=== PATIENT | female | born 1935 | race Caucasian/White ===

== ENCOUNTER 2021-10-13 23:52 | Emergency (ER) | payer OTHER, BC ==
--- OUTSIDE RECORDS SUMMARY | 2021-10-13 23:55 | XMS REPORT | Continuity of Care Document ---
:1935 Author Organization [facility] t Address [address] [place] [address] Care Team Providers Name Role Phone [phone] Primary Care Physician Unavailable Rama WOOYD Attending Clinician ARMA Attending Clinician Unavailable JULIANO Attending Clinician Unavailable REGGIE Attending Clinician Unavailable MD VILMA PAREDES Attending Clinician Unavailable MICHELE Attending Clinician Unavailable Ho WOODY Attending Clinician GUSTAVO Attending Clinician Unavailable MD VILMA PAREDES Admitting Clinician Unavailable Payers Payer Name Policy Type Policy Effective Date Expiration Date Sour ce Number MEDICAREMEDICARE PART [id number] 2002 MD Antione Child AND 00:00:00 [id number] [id number] [phone] [address] [id number] BLUE CROSS BLUE [id number] 2015 MD Bartlett on [place] PPO 00:00:00 [id number] [id number] Problems Condition Condition Condition Status Onset Resolution Last Treating Co mments Source Name Details Category Date Date Treatment Clinician Date 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 2-16 An derso in in 00:00: n remission remission 00 Anemia Anemia Disease Active 2015-08 2-12 Anderso 00:00: n 00 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 a a 2-12 Anderso 00:00: n 00 Serum Serum Disease Active 2015-08 creatinine creatinine 0-31 An derso raised raised 00:00: n 00 Malignant Malignant Disease Active 2015-08 neoplasm neoplasm 0-24 Dhruv o of of 00:00: n overlappin overlappin 00 g sites of g sites of bladder bladder Dyspepsia Dyspepsia Disease Active 2015-08 0-24 Anderso 00:00: n 00 Cramp in Cramp in Disease Active 2015-08 lower limb lower limb 0-17 An derso 00:00: n 00 Nausea Nausea Disease Active 2015-08 0-17 Anderso 00:00: n 00 Thrombocyt Thrombocyt Disease Active 2015-08 M D openia openia 0-17 Anderso 00:00: n 00 Neutropeni Neutropeni Disease Active 2015-08 M D a a 0-17 Anderso 00:00: n 00 Bladder Bladder Disease Active 2015-08 cancer cancer 0-03 Anderso 00:00: n 00 Menopause Menopause Disease Active MD Pamela mcarthur Hyperlipid Hyperlipid Disease Active M D emia emia Andtevin n Anxiety Anxiety Disease Active MD Pamela mcarthur Genital Genital Disease Active herpes herpes Andtevin simplex simplex n Genital Genital Disease Active warts warts Andtevin n Allergies, Adverse Reactions, Alerts This patient has no known allergies or adverse reactions. Family History Family Member Diagnosis Comments Start Date Stop Date Source Natural daughter -Breast cancer MD Mateusz august Natural mother -Breast cancer Social History Social Habit Start Date Stop Date Quantity Comments Source History of tobacco Current smoker MD Talbot use Exposure to Not sure MD Talbot SARS-CoV-2 (event) Alcohol intake 2020-10-08 2020-10-08 Current drinker of MD Talbot 00:00:00 00:00:00 alcohol (finding) Cigarettes smoked 2016-05-28 2016-05-28 MD Jamel riley current (pack per 00:00:00 00:00:00 day) - Reported Cigarette 2016-05-28 2016-05-28 MD Talbot pack-years 00:00:00 00:00:00 Tobacco use and 2016-05-28 2016-05-28 Smokeless tobacco MD Talbot exposure 00:00:00 00:00:00 non-user Sex [birth year] At [birth year] MD Bartlett on 00:00:00 00:00:00 Smoking Status Start Date Stop Date Source Ex-smoker 2016-05-28 00:00:00 2016-05-28 00:00:00 MD Rivera son Medications Ordered Filled Start Stop Current Ordering Indication Dosage Frequency Signature Comments Components Source Medication Medication Date Date Medication? Clinician (SIG) Name Name cholecalcif Yes [id number] Take janelle, 2-10 50,000 Anderso vitamin D3, 11:28: Units by n 1,000 units 39 mouth as tablet needed. desoximetas Yes Apply MD one 2-10 topically Anderso (TOPICORT) 11:28: to n 0.25 % 39 affected cream area(s) twice daily. mupirocin Yes mupirocin MD (BACTROBAN) 2-10 calcium 2 And erso 2% cream 11:28: % topical n 39 cream ketoconazol 2019-08 Yes Apply e (NIZORAL) 2-10 topically And erso 2% cream 00:00: to n 00 affected area(s). cetirizine 2019-08 Yes 10mg Take 10 mg M D (ZyrTEC) 10 2-10 by mouth. And erso mg tablet 00:00: n 00 cyanocobala Yes 1000ug Take 1,000 MD min 6-12 mcg by Anderso (VITAMIN 00:00: mouth. n B-12) 1000 00 mcg tablet skin Yes Bladder 4{spray Apply 4 MD cleanser 8-15 cancer } sprays Anderso combination 00:00: topically n no11 00 as needed (CAVILON (when SKIN applying CLEANSER) ostomy spry bag). sucralfate Yes Bladder 1000mg Swish and (CARAFATE) 9-14 cancer swallow 10 A nderso 100 mg/mL 00:00: mL (1,000 n suspension 00 mg) as needed for reflux. multivitami 2015-08 Yes 1{tbl} Take 1 MD n 0-18 tablet by Anderso (multivitam 00:00: mouth n in) tab 00 daily. tablet Vital Signs Vital Name Observation Time Observation Value Comments Source WEIGHT 2020-10-10 09:20:00 72 kg Systolic blood pressure 2021-10-09 16:07:01 149 mm[Hg] MD Talbot Diastolic blood pressure 2021-10-09 16:07:01 81 mm[Hg] MD Talbot Heart rate 2021-10-09 16:07:01 75 /min MD Miguel perea Body temperature 2021-10-09 16:07:01 36.22 Alma MD Mateusz august Respiratory rate 2021-10-09 16:07:01 15 /min MD Mateusz august Oxygen saturation in 2021-10-09 16:07:01 96 /min MD Talbot Arterial blood by Pulse oximetry Body height 2021-10-09 16:01:00 161 cm MD Miguel perea Body weight 2021-10-09 16:01:00 65 kg MD Miguel perea BMI 2021-10-09 16:01:00 25.08 kg/m2 MD Miguel perea Procedures Procedure Date / Time Performed Performing Clinician [facility] e CT ABDOMEN PELVIS WO CONTRAST 2021-10-08 19:53:01 Irineo Garrido MD XR CHEST 2 VW 2021-10-08 16:51:00 Irineo Garrido MD COMPREHENSIVE METABOLIC PANEL 2021-10-08 15:32:00 Irineo Garrido MD COMPLETE BLOOD COUNT W/ 2021-10-08 15:32:00 Irineo Garrido MD DIFFERENTIAL GLUCOSE LEVEL 2021-10-08 15:32:00 Irineo Garrido MD BLOOD UREA NITROGEN 2021-10-08 15:32:00 Irineo Garrido MD ELECTROLYTE PANEL 2021-10-08 15:32:00 Irineo Garrido MD SERUM CREATININE 2021-10-08 15:32:00 Irineo Garrido MD .GLOMERULAR FILTRATION RATE 2021-10-08 15:32:00 Irineo Garrido MD CALCIUM LEVEL TOTAL 2021-10-08 15:32:00 Irineo Garrido MD ALBUMIN LEVEL 2021-10-08 15:32:00 Irineo Garrido MD ALKALINE PHOSPHATASE 2021-10-08 15:32:00 Irineo Garrido MD ALANINE AMINOTRANSFERASE 2021-10-08 15:32:00 Irineo Garrido MD ASPARTATE AMINOTRANSFERASE 2021-10-08 15:32:00 Irineo Garrido TOTAL PROTEIN 2021-10-08 15:32:00 Irineo Garrido MD FRACTIONATED BILIRUBIN 2021-10-08 15:32:00 Irineo Garrido MD Results CBC 2021-10-08 15:32:00 Irineo Garrido MD MANUAL DIFFERENTIAL 2021-10-08 15:32:00 Irineo Garrido MD Miguel perea Plan of Care Planned Activity Planned Date Details Comments Source Future Scheduled Test 2020-11-06 00:00:00 COVID-19 Vaccination (3 MD Talbot - Pfizer risk 4-dose series) [code = COVID-19 Vaccination (3 - Pfizer risk 4-dose series)] Encounters Start End Encounter Admission Attending Care Care Encounter Source Date/Time Date/Time Type Type Clinicians Facility Department ID 2021-10-09 2021-10-09 Outpatient ANAIS GARRIDO MDA MDA [id number] 09:54:27 12:42:03 IRINEO Dhruv o n 2021-10-08 2021-10-08 Outpatient TOÑITO GARRIDO MDA [id number] MD 11:47:36 11:47:36 IRINEO Dhruv o n 2021-10-08 2021-10-08 Outpatient TOÑITO GARRIDO MDA [id number] MD 10:14:59 10:46:33 IRINEO Dhruv o n 2021-10-08 2021-10-08 Outpatient LAZTOÑITO MDA [id number] MD 09:32:00 09:34:10 IRINEO Dhruv o n 2021-10-08 2021[id number] MD 00:00:00 00:00:00 IRINEO Dhruv o n 2021-10-01 2021-10-01 Outpatient JULIANO [facility] [id number] [place] 00:00:00 00:00:00 JULIAN [address] 2021-09-15 2021-09-15 Outpatient [facility] [id number] [place] 00:00:00 00:00:00 JANAY [address] 2021-08-20 2021-08-20 Outpatient [facility] [id number] [place] 00:00:00 00:00:00 JANAY 156 [facility] 2021-08-20 2021-08-20 Outpatient REGGIE [facility] [id number] [place] 00:00:00 00:00:00 JANAY 885 [facility] 2021-08-12 2021-08-12 Emergency MICHELE, [facility] [id number] [place] 00:00:00 00:00:00 BRAYANDELMIS 559 [facility] thodi 2021-07-09 2021-07-09 Outpatient REGGIE [facility] [id number] [place] 00:00:00 00:00:00 JANAY 970 [facility] 2021-06-12 2021-06-12 Outpatient REGGIE [facility] [id number] [place] 00:00:00 00:00:00 JANAY 426 [facility] 2020-12-31 2020-12-31 Outpatient REGGIE [facility] [id number] [place] 00:00:00 00:00:00 JANAY 034 Method i 2020-10-10 2020-10-10 Outpatient EL NAVAI, MDA MDA [id number] 09:18:21 15:39:01 IRINEO Dhruv o n 2020-10-09 2020-10-09 Outpatient [facility] [id number] [place] 00:00:00 00:00:00 027 Method i 2020-10-08 2020-10-08 Outpatient EL NAVAI, MDA MDA [id number] 12:30:29 12:30:29 IRINEO Dhruv o n 2020-10-08 2020-10-08 Outpatient EL NAVAI, MDA MDA [id number] 12:29:47 12:29:47 IRINEO Dhruv o n 2020-10-08 2020-10-08 Outpatient EL NAVAI, MDA MDA [id number] 12:13:25 12:20:30 IRINEO Dhruv o n 2020-09-18 2020-09-18 Outpatient [facility] [id number] [place] 00:00:00 00:00:00 602 [facility] i 2020-08-08 2020-08-08 Outpatient REGGIE [facility] [id number] [place] 00:00:00 00:00:00 JANAY 885 [facility] i 2020-05-13 2020-05-13 Outpatient REGGIE [facility] [id number] [place] 00:00:00 00:00:00 JANAY [address] 2020-05-02 2020-05-02 Outpatient REGGIE [facility] [id number] [place] 00:00:00 00:00:00 JANAY [address] 2020-05-02 2020-05-02 Emergency PRASHANT CHEN [facility] [id number] [place] 00:00:00 00:00:[address] 2020-02-07 2020-02-07 Outpatient REGGIE [facility] [id number] [place] 00:00:00 00:00:00 JANAY [address] Results Test Description Test Time Test Comments Results Result Comments Source SARS-CoV-2 (COVID-19) RNA [Presence] in Respiratory sp ecimen by 2021-08-21 06:27:28 ABRAHAM with probe detection Test Item Value Reference Range Interpretation Comme nts SARS-CoV-2 (COVID-19) RNA [Presence] in Respiratory Not detected No t-Detected specimen by ABRAHAM with probe detection (test code = 62117-2) Whether patient is employed in a healthcare setting (test code = 63106-0)
--- OUTSIDE RECORDS SUMMARY | 2021-10-13 23:55 | XMS REPORT | Clinical Summary ---
:1935 Author Organization [facility] MD [facility] Address [address] [place] [address] Care Team Providers Name Role Phone MD Hema Primary Care Provider Allergies Active Allergy Reactions Severity Noted Date Comments Codeine Shortness Of Breath High 05/28/2016 Meperidine Other (See High 05/28/2016 NAUSEAUS Comments) Iodinated Contrast Media 12/02/2017: Pt reported hx of burning in ches t and and arms with e ach CT scan and wou ld resolve shortly after injection . Pt denies any rash or other s/s. Dr. Underwood stated that the Prednisone prep and IV Benadryl are not needed since th is is a side effect o f the IV iodine contr ast and not an florence rgy. Cephalexin Shortness Of Breath High 05/28/2016 Nitrofurantoin Shortness Of Breath High 05/28/2016 Macrocrystalline Morphine Shortness Of Breath High 05/28/2016 Penicillins Shortness Of Breath High 05/28/2016 Sulfa (Sulfonamide Shortness Of Breath High 05/28/2016 Antibiotics) Medications Medication Sig Dispensed Refills Start Date End Date Status cholecalciferol, Take 50,000 Units 0 Active vitamin D3, 1,000 units by mouth as tablet needed. multivitamin Take 1 tablet by 0 06/16/2016 Active (multivitamin) tab mouth daily. tabletIndications: dietary supplement sucralfate (CARAFATE) Swish and swallow 420 mL 3 05/13/2017 Active 100 mg/mL 10 mL (1,000 mg) suspensionIndications: as needed for Bladder cancer reflux. desoximetasone Apply topically 0 Active (TOPICORT) 0.25 % cream to affected area(s) twice daily. skin cleanser Apply 4 sprays 1 Bottle 12 04/13/2019 Active combination no11 topically as (CAVILON SKIN CLEANSER) needed (when spryIndications: applying ostomy Bladder cancer bag). mupirocin (BACTROBAN) mupirocin calcium 0 Active 2% cream 2 % topical cream ketoconazole (NIZORAL) Apply topically 0 08/08/2020 Active 2% cream to affected area(s). cyanocobalamin (VITAMIN Take 1,000 mcg by 0 02/09/20 20 Active B-12) 1000 mcg tablet mouth. cetirizine (ZyrTEC) 10 Take 10 mg by 0 08/08/2020 Active mg tablet mouth. Active Problems Problem Noted Date Major depression in remission 08/14/2016 Anemia 08/10/2016 Tachycardia 08/10/2016 Serum creatinine raised 06/29/2016 Malignant neoplasm of overlapping sites of bladder Dyspepsia 06/22/2016 Cramp in lower limb 06/15/2016 Nausea 06/15/2016 Thrombocytopenia 06/15/2016 Neutropenia 06/15/2016 Bladder cancer 06/01/2016 Menopause Hyperlipidemia Anxiety Genital herpes simplex Genital warts Encounters Date Type Specialty Care Team Description 10/09/2021 Office Visit Urology Amber Garrido MD Bladder can cer (Primary Dx) 10/09/2021 Travel 10/08/2021 Ancillary Procedure Radiology Amber Garrido MD Arri yvonne 10/08/2021 Ancillary Procedure Radiology Amber Garrido MD Blabossman emile cancer 10/08/2021 Ancillary Procedure Radiology Amber Garrido MD Blad emile cancer 10/08/2021 Travel 11/06/2020 Orders Only Mare Randolph MD SARS-CoV -2 vaccination after 10/13/2020 Surgical History Surgery Date Site/Laterality Comments COLONOSCOPY 08/30/2009 - negative for abn ormalities. 08/29/2010 TONSILLECTOMY as a child POLYPECTOMY uterine DILATION AND CURETTAGE OF UTERUS BLADDER TUMOR EXCISION UT 06/01/2016 Bladder/N/A Procedure: CYSTO URETHROSCOPY CYSTOURETHROSCOPY,BIOPSY , TURBT , EUA; Surgeon: Amber Garrido MD; Location: [facility]; Servic e: UROLOGY UT LAP PROCEDURE, 08/07/2016 Abdomen/N/A Procedure: DIAMOND OTIC ASSISTED UNLISTED, BLADDER COMPLETE CYSTE CTOMY; Surgeon: Amber foley MD; Location: MAIN O R; Service: UROLOGY UT URETEROILEAL 08/07/2016 Bilateral Procedure: ROBOT IC ASSISTED CONDUIT,W/BOWEL URINARY DIVERSIO N-ILEAL ANASTOMOSIS CONDUIT; Surgeo n: Amber Garrido MD; Loca tion: MAIN OR; Service: UR OLOGY UT RADICAL ABD 08/07/2016 Bilateral Procedure: ROBOT IC ASSISTED HYSTEREC+PELV NODES RADICAL HYST ERECTOMY, W/ REMOVAL OF TUBE( S) AND OVARY(IES); Corey geon: Amber Garrido MD; Loca tion: MAIN OR; Service: UR OLOGY UT LAP,PELVIC 08/07/2016 Bilateral Procedure: ROBOT IC ASSISTED LYMPHADENECTOMY PELVIC LYMPHADEN ECTOMY; Surgeon: Amber foley MD; Location: MAIN O R; Service: UROLOGY UT LAP,DIAGNOSTIC ABDOMEN 08/07/2016 Abdomen/N/A Proced ure: ROBOTIC ASSISTED SURGICAL LAPAROS COPY with lysis of adhesio ns; Surgeon: Amber foley MD; Location: MAIN O R; Service: UROLOGY Medical History Medical History Date Comments Hyperlipidemia Genital warts Genital herpes simplex Menopause Anxiety Bladder cancer Family History Medical History Relation Name Comments -Breast cancer Daughter Deepti [place] -Breast cancer Mother Kg Stuart treated with mas tectomy and hormonal treatment. Relation Name Status Comments Daughter Deepti [place] Alive Mother Kg Stuart Social History Tobacco Use Types Packs/Day Years Used Date Former Smoker Cigarettes 0.25 15 Quit: 1981 Smokeless Tobacco: Never Used Alcohol Use Standard Drinks/Week Comments Yes 3 (1 standard drink = 0.6 oz pure alcoho l) Sex Assigned at Date Recorded Not on file Job Start Date Occupation Industry Not on file Not on file Not on file COVID-19 Exposure Response Date Recorded In the last month, have you been in contact with No / Unsure 10/09/2021 9:53 AM GEOTHERMAL INSTALLER someone who was confirmed or suspected to have Coronavirus / COVID-19? Obstetrics History Last Filed Vital Signs Vital Sign Reading Time Taken Comments Blood Pressure 149/81 10/09/2021 10:07 AM GEOTHERMAL INSTALLER Pulse 75 10/09/2021 10:07 AM GEOTHERMAL INSTALLER Temperature 36.2 C (97.2 F) 10/09/2021 10:07 AM GEOTHERMAL INSTALLER Respiratory Rate 15 10/09/2021 10:07 AM GEOTHERMAL INSTALLER Oxygen Saturation 96% 10/09/2021 10:07 AM GEOTHERMAL INSTALLER Inhaled Oxygen Concentration - - Weight 65 kg (143 lb 4.8 oz) 10/09/2021 10:01 AM GEOTHERMAL INSTALLER Height 161 cm (5' 3.39") 10/09/2021 10:01 AM GEOTHERMAL INSTALLER Body Mass Index 25.08 10/09/2021 10:01 AM GEOTHERMAL INSTALLER Plan of Treatment Date Type Specialty Care Team Description 10/07/2022 Appointment Lab Amber Garrido MD [address] [place], [place] [address] (Wo rk) 10/07/2022 Ancillary Procedure Radiology Amber Garrido MD [address] [place], [place] [address] (Wo rk) 10/07/2022 Ancillary Procedure Radiology Amber Garrido MD [address] [place], [place] [address] (Wo rk) 10/08/2022 Office Visit Urology Amber Garrido MD [address] [place], [place] [address] (Wo rk) Health Maintenance Due Date Last Done Comments COVID-19 Vaccination (3 - Pfizer risk 11/06/2020 10/09/2020 , 09/18/2020 4-dose series) Procedures Procedure Name Priority Date/Time Associated Comments Diagnosis CT ABDOMEN PELVIS WO Routine 10/08/2021 1:53 Bladder cancer R esults for this CONTRAST PM [employer] INSTALLER procedure are i n the results section. XR CHEST 2 VW Routine 10/08/2021 10:51 Bladder cancer Results for this AM [employer]ALLER procedure are i n the results section. MANUAL DIFFERENTIAL Routine 10/08/2021 9:32 Bladder cancer Re sults for this AM [employer]OTHER[employer] INSTALLER procedure are i n the results section. Results CBC Routine 10/08/2021 9:32 Bladder cancer Results f or this AM [employer]OTHERMAL INSTALLER procedure are i n the results section. FRACTIONATED BILIRUBIN Routine 10/08/2021 9:32 Bladder cancer Results for this AM [employer] INSTALLER procedure are i n the results section. TOTAL PROTEIN Routine 10/08/2021 9:32 Bladder cancer Results for this AM [employer]OTHERM[employer] INSTALLER procedure are i n the results section. ASPARTATE Routine 10/08/2021 9:32 Bladder cancer Results f or this AMINOTRANSFERASE AM [employer]OTHERMAL INSTALLER procedure a re in the results section. ALANINE AMINOTRANSFERASE Routine 10/08/2021 9:32 Bladder canc er Results for this AM [employer]OTHERM[employer] INSTALLER procedure are i n the results section. ALKALINE PHOSPHATASE Routine 10/08/2021 9:32 Bladder cancer R esults for this AM [employer]OTHERMAL INSTALLER procedure are i n the results section. ALBUMIN LEVEL Routine 10/08/2021 9:32 Bladder cancer Results for this AM [employer]OTHERM[employer] INSTALLER procedure are i n the results section. CALCIUM LEVEL TOTAL Routine 10/08/2021 9:32 Bladder cancer Re sults for this AM [employer]OTHERMAL INSTALLER procedure are i n the results section. .GLOMERULAR FILTRATION Routine 10/08/2021 9:32 Bladder cancer Results for this RATE AM [employer]OTHERMAL INSTALLER procedure are i n the results section. SERUM CREATININE Routine 10/08/2021 9:32 Bladder cancer Resul ts for this AM [employer]OTHERMAL INSTALLER procedure are i n the results section. ELECTROLYTE PANEL Routine 10/08/2021 9:32 Bladder cancer Resu lts for this AM [employer]OTHERMAL INSTALLER procedure are i n the results section. BLOOD UREA NITROGEN Routine 10/08/2021 9:32 Bladder cancer Re sults for this AM [employer]OTHERMAL INSTALLER procedure are i n the results section. GLUCOSE LEVEL Routine 10/08/2021 9:32 Bladder cancer Results for this AM [employer]OTHERMAL INSTALLER procedure are i n the results section. COMPLETE BLOOD COUNT W/ Routine 10/08/2021 9:32 Bladder cance r DIFFERENTIAL AM [employer]OTHERMAL INSTALLER COMPREHENSIVE METABOLIC Routine 10/08/2021 9:32 Bladder cance r PANEL AM GEOTHERMAL INSTALLER after 10/13/[address] Abdomen Pelvis without Contrast (10/08/2021 1:53 PM GEOTHERMAL INSTALLER) Specimen Impressions [id number] - 10/08/2021 8:17 PM GEOTHERMAL INSTALLER 1. No evidence of recurrent or metastati c disease on this noncontrast enhanced examination. 2. Stable postoperative changes, cystic pancreatic lesions and incidental findings as described above. Narrative [id number] - 10/08/2021 8:17 PM GEOTHERMAL INSTALLER FULL RESULT: Examination: CT ABDOMEN PELVIS WO CONTRA ST on 10/08/2021 1:53 PM Clinical History: Bladder cancer Indication: bladder cancer Comparison: CT 10/08/2020 Technique: Multiplanar CT imaging of the abdomen and pelvis was performed without intravenous contrast. Sagittal and coronal reconstructions were obtained. Findings: Lung Bases:No consolidations or masses i n the visualized portions of the lung bases. Abdomen and Pelvis: The lack of intravenous contrast limits the evaluation. Stable postoperative changes of radical cystectomy with ileal conduit creation. No pelvic mass or lymphadenopathy. No hydronephrosis or contour deforming m asses in the unenhanced kidneys. No radiopaque urinary tract calculi. No mass is seen in the unenhanced liver. No biliary dilatation and the gallbladder is present. Cholelithiasis is suspected. Small cystic pancreatic lesions are prob ably not significantly changed (series 3, images 38, 37, 31, 28). No pancreatic ductal dilatation. The spleen is stable in size. No adrenal lesions. No pathologically enlarged retroperitone al, retrocrural or mesenteric lymph nodes. Atheromatous calcifications and plaques and aorta and its branches. The bowel is unobstructed. There is colo albertina diverticulosis. No significant ascites. Bones: Multilevel degenerative changes in the s pine-axial skeleton. There is osteopenia. Procedure Note Keenan Aragon MD - 10/08/2021 FULL RESULT: Examination: CT ABDOMEN PELVIS WO CONTRA ST on 10/08/2021 1:53 PM Clinical History: Bladder cancer Indication: bladder cancer Comparison: CT 10/08/2020 Technique: Multiplanar CT imaging of the abdomen and pelvis was performed without intravenous contrast. Sagittal and coronal reconstructions were obtained. Findings: Lung Bases:No consolidations or masses i n the visualized portions of the lung bases. Abdomen and Pelvis: The lack of intravenous contrast limits the evaluation. Stable postoperative changes of radical cystectomy with ileal conduit creation. No pelvic mass or lymphadenopathy. No hydronephrosis or contour deforming m asses in the unenhanced kidneys. No radiopaque urinary tract calculi. No mass is seen in the unenhanced liver. No biliary dilatation and the gallbladder is present. Cholelithiasis is suspected. Small cystic pancreatic lesions are prob ably not significantly changed (series 3, images 38, 37, 31, 28). No pancreatic ductal dilatation. The spleen is stable in size. No adrenal lesions. No pathologically enlarged retroperitone al, retrocrural or mesenteric lymph nodes. Atheromatous calcifications and plaques and aorta and its branches. The bowel is unobstructed. There is colo albertina diverticulosis. No significant ascites. Bones: Multilevel degenerative changes in the s pine-axial skeleton. There is osteopenia. IMPRESSION: 1. No evidence of recurrent or metastati c disease on this noncontrast enhanced examination. 2. Stable postoperative changes, cystic pancreatic lesions and incidental findings as described above. Performing Organization Address [facility] Code Phon e Number [id number] X-ray Chest 2 Views (10/08/2021 10:51 AM GEOTHERMAL INSTALLER) Specimen Impressions [id number] - 10/08/2021 10:54 AM GEOTHERMAL INSTALLER Stable appearance of the chest. Narrative [id number] - 10/08/2021 10:54 AM GEOTHERMAL INSTALLER FULL RESULT: Examination: XR CHEST 2 VW, 10/08/2021 10: 51 AM Clinical History: Bladder cancer Indication: Bladder cancer Comparison: 10/08/2020 Technique: Posteroanterior, lateral and dual-energy radiographs of the chest. Findings: Tubes and Lines: None. Heart and Mediastinum: The cardiac silho uette is unchanged. Pleura: There is no pneumothorax or pleu ral effusion. Lungs: No new opacities are present. Bones: The visualized osseous structures are unchanged. Procedure Note Trevor Daniel MD - 10/08/2021 FULL RESULT: Examination: XR CHEST 2 VW, 10/08/2021 10: 51 AM Clinical History: Bladder cancer Indication: Bladder cancer Comparison: 10/08/2020 Technique: Posteroanterior, lateral and dual-energy radiographs of the chest. Findings: Tubes and Lines: None. Heart and Mediastinum: The cardiac silho uette is unchanged. Pleura: There is no pneumothorax or pleu ral effusion. Lungs: No new opacities are present. Bones: The visualized osseous structures are unchanged. IMPRESSION: Stable appearance of the chest. Performing Organization Address City/[facility]/ZIP Code Phon e Number [id number] (ABNORMAL) .Serum Creatinine (10/08/2021 9:32 AM GEOTHERMAL INSTALLER) Pathologist Sig marcelino Creatinine 0.96 (H)Comment: 0.51 - 0.95 mg/dL [place] Testing performed at [facility], [address] [place] [id number] Specimen Blood Performing Organization Address City/State/ZIP Code Phon e Number [place], [place] [id number] [place] [address] (ABNORMAL) .CBC (10/08/2021 9:32 AM GEOTHERMAL INSTALLER) Pathologist Sig marcelino WBC 7.1Comment: All 4.0 - 11.0 K/uL [place] components of the CBC performed at [facility], [address] [place] [address] [id number] RBC 4.68Comment: All 4.00 - 5.50 [place] components of the CBC M/uL performed at [facility], [address] [place] [address] Hgb 15.7Comment: As part 12.0 - 16.0 [place] of CBC or as an gm/dL individual orderable testing performed at [facility], [address] [place] [address] Hct 48.3 (H)Comment: As 37.0 - 47.0 % [place] part of CBC testing performed at [facility], [address] [place] [address] MCV 103 (H)Comment: As 82 - 98 fL [place] part of CBC testing performed at [facility], [address] [place] [address] MCH 33.5 (H)Comment: As 27.0 - 31.0 pg [place] part of CBC testing performed at [facility], [address] [place] [address] MCHC 32.5Comment: As part 31.0 - 36.0 [place] of CBC testing gm/dL performed at [facility], [address] [place] [address] RDW-SD 51.6 (H)Comment: As 35.1 - 46.3 fL [facility] part of CBC testing performed at [facility], [address] [place] [address], [place] [address] RDW-CV 13.3Comment: As part 12.0 - 15.5 % [place] of CBC testing performed at [facility], [address] [place] [address], [place] [address] Platelet count 204Comment: As part 140 - 440 K/uL [place] of CBC or an individual orderable testing performed at [facility], [address] [place] [address], [place] [address] MPV 10.3Comment: As part 4.0 - 10.4 fL [place] of CBC testing performed at [facility], [address] [place] [address] 16[address] Specimen Blood Performing Organization Address City/State/ZIP Code Phon e Number [facility] [place] [address] [place] [address] (ABNORMAL) Glomerular Filtration Rate (10/08/2021 9:32 AM GEOTHERMAL INSTALLER) [facility] eGFR-AA 63 >=60 mL/min/1.73 [place] Comment: sq. m Normal eGFR >= 60 mL/min/1.73 m2 Note: The eGFR is calculated using the CKD-EPI equation. The eGFR declines with age. eGFR <60 mL/min/1.73 m2 is considered as "decreased". This equation should only be used for patients 18 and older. According to the National [facility]'s Kidney Disease Outcome Quality Initiative (KDOQI) classification and 2012 Kidney Disease Improving Global Outcomes (KDIGO) Clinical Practice Guideline, the stage of CKD should be categorized based on estimated GFR. Stage Description GFR mL/min/1.73 m2 1 Normal or high GFR >=90 2 Mildly decreased GFR 60-89 3a Mildly to moderately decreased GFR 45-59 3b Moderately to severely decreased GFR 30-44 4 Severely decreased GFR 15-29 5 Kidney failure <15 Testing performed at [facility], [address] [place] [address], [place] [address] eGFR-ABRAHAM 54 (L) >=60 mL/min/1.73 [place] Comment: sq. m Normal eGFR >= 60 mL/min/1.73 m2 Note: The eGFR is calculated using the CKD-EPI equation. The eGFR declines with age. eGFR <60 mL/min/1.73 m2 is considered as "decreased". This equation should only be used for patients 18 and older. According to the [facility]'s Kidney Disease Outcome Quality Initiative (KDOQI) classification and 2012 Kidney Disease Improving Global Outcomes (KDIGO) Clinical Practice Guideline, the stage of CKD should be categorized based on estimated GFR. Stage Description GFR mL/min/1.73 m2 1 Normal or high GFR >=90 2 Mildly decreased GFR 60-89 3a Mildly to moderately decreased GFR 45-59 3b Moderately to severely decreased GFR 30-44 4 Severely decreased GFR 15-29 5 Kidney failure <15 Testing performed at [facility], [address] [place] [address] Specimen Blood Performing Organization Address City/[facility] Phon e Number [place], [place] [id number] [place] [address] Fractionated Bilirubin (10/08/2021 9:32 AM GEOTHERMAL INSTALLER) [facility] Bili Total 1.1 <=1.2 mg/dL [place] Comment: Indocyanine Green (ICG) may cause falsely elevated bilirubin results. Total and direct bilirubin must not be measured from samples containing indocyanine green. False elevation of total chelsie irubin can be seen in patients with IgG concentrations above 28 g/L. Testing performed at [facility], [address] [place] [address] Bili Direct 0.2 <=0.3 mg/dL [place] Comment: Indocyanine Green (ICG) may cause falsely elevated bilirubin results. Total and direct bilirubin must not be measured from samples containing indocyanine green. Testing performed at [facility], [address] [place] [address] Bili Indirect 0.9Comment: Testing 0.0 - 0.9 [place] performed at [facility] mg/dL [address] [address] Specimen Blood Performing Organization Address City/[facility] Phon e Number [place] [id number] [place] [address] (ABNORMAL) Differential (10/08/2021 9:32 AM GEOTHERMAL INSTALLER) [facility] Signature Neutrophil % 70.8 (H)Comment: All 42.0 - 66.0 % [place] components of the Differential performed at [facility], [address] [place] [address] Lymphocyte % 20.3 (L)Comment: As 24.0 - 44.0 % [place] part of the Differential testing performed at [facility], [address] [place] [address] Monocyte % 7.7 (H)Comment: As 2.0 - 7.0 % [place] part of the Differential testing performed at [facility], [address] [place] [address] Eosinophil % 0.8 (L)Comment: As 1.0 - 4.0 % [place] part of the Differential testing performed at [facility], [address] [place] [address] Basophil % 0.3Comment: As part of 0.0 - 1.0 % [place] the Differential testing performed at [facility], [address] [place] [address] IGRE % 0.1 0.0 - 0.4 % [place] Comment: IGRE % count includes Metamyelocytes, Myelocytes, and Promyelocytes. As part of the Differential testing performed at [facility], [address] [place] [address], [place] [address] Neutrophil Abs 5.05Comment: As part 1.70 - 7.30 [facility] of the Differential K/uL testing performed at [facility], [address] [place] [address] Lymphocyte Abs 1.45Comment: As part 1.00 - 4.80 [place] of the Differential K/uL testing performed at [facility], [address] [place] [address] Monocyte Abs 0.55Comment: As part 0.08 - 0.70 [place] of the Differential K/uL testing performed at [facility], [address] [place] [address] Eosinophil Abs 0.06Comment: As part 0.04 - 0.40 [place] of the Differential K/uL testing performed at [facility], [address] [place] [address] Basophil Abs 0.02Comment: As part 0.00 - 0.10 [place] of the Differential K/uL testing performed at [facility], [address] [place] [address] IG Abs 0.01Comment: As part 0.00 - 0.04 [place] of the Differential K/uL testing performed at [facility], [address] [place] [address] Specimen Blood Performing Organization Address City/State/ZIP Code Phon e Number [address] BUN (10/08/2021 9:32 AM GEOTHERMAL INSTALLER) Pathologist Sig marcelino BUN 15Comment: Testing 6 - 23 mg/dL [place] performed at [facility], [address] [place] [address] Specimen Blood Performing Organization Address City/State/ZIP Code Phon e Number [address] ALT (10/08/2021 9:32 AM GEOTHERMAL INSTALLER) Pathologist Sig marcelino ALT 9Comment: Testing performed at <=33 U/L CECIL CIT Y [facility], [address] [place] [address] Specimen Blood Performing Organization Address City/State/ZIP Code Phon e Number [address] Aspartate Aminotransferase (10/08/2021 9:32 AM GEOTHERMAL INSTALLER) Pathologist Sig nature AST 17 <=32 U/L [place] Comment: Specimen is hemolyzed. Results may be fa lsely elevated. Repeat test if needed. Testing performed at [facility], [address] [place] [address] Specimen Blood Performing Organization Address City/State/ZIP Code Phon e Number [place] [address] Total Protein (10/08/2021 9:32 AM GEOTHERMAL INSTALLER) Pathologist Sig nature Total Protein 6.8Comment: Testing 6.4 - 8.3 g/dL [place] performed at [facility], [address] [place] [id number] Specimen Blood Performing Organization Address City/State/ZIP Code Phon e Number [place], [place] [id number] [place] [address] Alkaline Phosphatase (10/08/2021 9:32 AM GEOTHERMAL INSTALLER) Pathologist Sig nature Alk Phos 61Comment: Testing 35 - 104 U/L [place] performed at [facility], [address] [place] [address] Specimen Blood Performing Organization Address City/State/ZIP Code Phon e Number [place], [place] [id number] [place] [address] Glucose Level (10/08/2021 9:32 AM GEOTHERMAL INSTALLER) Pathologist Sig nature Glucose Level 83 70 - 99 mg/dL [place] Comment: Effective 03/25/16, the gluco se reference intervals have been updated based on [place] [employer] guidelines (Standards of Medical Care in Diabetes 2016. Diabetes Care 2016; 39: S13-S22). Fasting blood glucose: Normal: 70-99 mg/dL Impaired fasting glucose (in creased risk for diabetes or pre-diabetes): 100- 125 mg/dL Diabetes mellitus: >/=126 mg/dL Random blood glucose: Normal: 70-199 mg/dL Note: Random glucose >100 mg/dL is assoc iated with increased risk for diabetes Testing performed at [facility], [address] [place] [id number] Specimen Blood Performing Organization Address City/State/ZIP Code Phon e Number [address] Calcium Level (10/08/2021 9:32 AM GEOTHERMAL INSTALLER) Pathologist Sig nature Calcium Lvl 9.4Comment: Testing 8.4 - 10.2 mg/dL [place] performed at [facility], [address] [place] [address], [place] [address] Specimen Blood Performing Organization Address City/State/ZIP [place] [address] [place] [address] Albumin Level (10/08/2021 9:32 AM GEOTHERMAL INSTALLER) Pathologist Sig nature Albumin Lvl 4.2Comment: Testing 3.5 - 5.2 gm/dL [place] performed at [facility], [address] [place] [id number] Specimen Blood Performing Organization Address City/[facility]/ZIP [place] [address] [place] [address] Electrolyte Panel (10/08/2021 9:32 AM GEOTHERMAL INSTALLER) Pathologist Sig nature Sodium Lvl 143Comment: Testing 136 - 145 mEq/L [place] performed at [facility], [address] [place] [id number] Potassium Lvl 3.5Comment: Testing 3.5 - 5.1 mEq/L [place] performed at [facility], [address] [place] [id number] Chloride 105Comment: Testing 98 - 107 mEq/L [place] performed at [facility], [address] [place] [address] CO2 24Comment: Testing 22 - 29 mEq/L [place] performed at [facility], [address] [place] [address] Anion Gap 14Comment: Testing 4 - 14 mEq/L [place] performed at [facility], [address] [place] [address] Specimen Blood Performing Organization Address City/State/ZIP [place] [address] [place] [address] after 10/13/2020 Insurance Payer Benefit Plan Subscriber ID Effective Phone Address Typ e / Group Dates MEDICARE MEDICARE PART [id number] 2002-Prese [phone] [facility] Medicare A AND B nt 82 SOL[employer] [address] JUSTIN LOZADA [phone] [facility] [place]BS [place] PPO [id number] 2015-Pres [address] BLUE SHIELD POS ent [id number] [place] [address] (Work) [id number] Jil Dyer Personal/Family Self 1935 [address] [place] [id number] Jil Dyer Personal/Family Self 1935 [address] [place] [id number] Advance Directives Code Status Date Activated Date Inactivated Comments Full Code 08/07/2016 8:54 PM 08/20/2016 4:15 PM Full Code 08/07/2016 5:12 PM 08/07/2016 8:54 PM Full Code 06/29/2016 11:34 AM 07/01/2016 8:24 PM Full Code 06/15/2016 1:00 PM 06/16/2016 9:34 PM Full Code 06/01/2016 3:45 PM 06/01/2016 7:49 PM Care Teams Commercial Lending Vice President Relationship Specialty Start Date End Date Amber Garrido MD PCP - General Urology 05/28/[address] [place] [id number]
[2021-10-14] MEDS ORDERED: DIPHENHYDRAMINE 50 MG/ML VIAL ONE (00:16)
[2021-10-14] MEDS ORDERED: NA CHLORIDE 0.9% 500 ML ONE (00:16)
[2021-10-14] MEDS ORDERED: METHYLPREDNISOLONE 125 MG INJ ONE (00:16)
[2021-10-14] MEDS ORDERED: FAMOTIDINE 20 MG/2 ML VIAL IV ONE (00:16)
[2021-10-14] MEDS ORDERED: predniSONE 20 MG TAB ONE (00:16)
[2021-10-14 00:52] LABS: Absolute Lymphocytes (CBC) 2.1 K/uL (0.7-4.9); Lymphocytes % 37.8 % (15.3-44.8); MPV 9.8 fL (7.6-11.3); RBC Red Blood Cell Count 4.59 M/uL (3.86-4.86)
[2021-10-14 01:04] LABS: Albumin 3.5 g/dL (3.4-5.0); Bilirubin Total 0.7 mg/dL (0.2-1.0); Potassium 3.7 mmol/L (3.5-5.1); Protein, Total 6.9 g/dL (6.4-8.2); Troponin High Sensitivity 13.7 pg/mL (<58.9)
--- NOTE | 2021-10-14 01:12 | EDPHYS ---
Physician Documentation [facility] Name: Jil Dyer Age: 86 yrs Sex: Female : 1935 Arrival Date: 10/13/2021 Time: 23:54 Bed 14 Private MD: ED Physician Pio Talbot HPI: 10/14 01:02 This 86 yrs old Female presents to ER via Ambulatory with complaints of sob derek after meds. 01:02 The patient has shortness of breath with light activity. Onset: The symptoms/episode derek began/occurred just prior to arrival. Duration: The symptoms are continuous, and are steadily getting worse. The patient's shortness of breath has no apparent modifying factors. Associated signs and symptoms: Pertinent positives: non-productive cough. Severity of symptoms: At their worst the symptoms were mild in the emergency department the symptoms are unchanged. The patient has experienced similar episodes in the past, a few times. Historical: - Allergies: 10/13 23:58 Iodine; st1 23:58 PENICILLINS; st1 23:58 Sulfa (Sulfonamide Antibiotics); st1 23:58 Morphine; st1 23:58 Demerol; st1 - PMHx: 23:58 None; st1 - Immunization history:: Adult Immunizations up to date. - Social history:: Patient uses Patient/guardian denies using street drugs, IV drugs, Smoking status: Patient denies any tobacco usage or history of. ROS: 10/14 01:04 Constitutional: Negative for fever, chills, and weight loss, Eyes: Negative for injury, deerk pain, redness, and discharge, ENT: Negative for injury, pain, and discharge, Neck: Negative for injury, pain, and swelling, Cardiovascular: Negative for chest pain, palpitations, and edema, Respiratory: Negative for shortness of breath, cough, wheezing, and pleuritic chest pain, Abdomen/GI: Negative for abdominal pain, nausea, vomiting, diarrhea, and constipation, Back: Negative for injury and pain, : Negative for injury, bleeding, discharge, and swelling, MS/Extremity: Negative for injury and deformity, Skin: Negative for injury, rash, and discoloration, Neuro: Negative for headache, weakness, numbness, tingling, and seizure, Psych: Negative for depression, anxiety, suicide ideation, homicidal ideation, and hallucinations, Allergy/Immunology: Negative for hives, rash, and allergies, Endocrine: Negative for neck swelling, polydipsia, polyuria, polyphagia, and marked weight changes, Hematologic/Lymphatic: Negative for swollen nodes, abnormal bleeding, and unusual bruising. Exam: 01:04 Constitutional: This is a well developed, well nourished patient who is awake, alert, derek and in no acute distress. Head/Face: Normocephalic, atraumatic. Eyes: Pupils equal round and reactive to light, extra-ocular motions intact. Lids and lashes normal. Conjunctiva and sclera are non-icteric and not injected. Cornea within normal limits. Periorbital areas with no swelling, redness, or edema. ENT: Nares patent. No nasal discharge, no septal abnormalities noted. Tympanic membranes are normal and external auditory canals are clear. Oropharynx with no redness, swelling, or masses, exudates, or evidence of obstruction, uvula midline. Mucous membranes moist. Neck: Trachea midline, no thyromegaly or masses palpated, and no cervical lymphadenopathy. Supple, full range of motion without nuchal rigidity, or vertebral point tenderness. No Meningismus. Chest/axilla: Normal chest wall appearance and motion. Nontender with no deformity. No lesions are appreciated. Cardiovascular: Regular rate and rhythm with a normal S1 and S2. No gallops, murmurs, or rubs. Normal PMI, no JVD. No pulse deficits. Respiratory: Lungs have equal breath sounds bilaterally, clear to auscultation and percussion. No rales, rhonchi or wheezes noted. No increased work of breathing, no retractions or nasal flaring. Abdomen/GI: Soft, non-tender, with normal bowel sounds. No distension or tympany. No guarding or rebound. No evidence of tenderness throughout. Back: No spinal tenderness. No costovertebral tenderness. Full range of motion. Female : Normal external genitalia. Skin: Warm, dry with normal turgor. Normal color with no rashes, no lesions, and no evidence of cellulitis. MS/ Extremity: Pulses equal, no cyanosis. Neurovascular intact. Full, normal range of motion. Neuro: Awake and alert, GCS 15, oriented to person, place, time, and situation. Cranial nerves II-XII grossly intact. Motor strength 5/5 in all extremities. Sensory grossly intact. Cerebellar exam normal. Normal gait. Psych: Awake, alert, with orientation to person, place and time. Behavior, mood, and affect are within normal limits. 01:04 Musculoskeletal/extremity: DVT Exam: No signs of deep vein thrombosis. no pain, no swelling, no tenderness, negative Homans' sign noted on exam, no appreciated bluish discoloration, no erythema, no increased warmth. Vital Signs: 10/13 23:56 BP 153 / 75; Pulse 76; Resp 22; Temp 97.5; Pulse Ox 100% on R/A; Weight 62.6 kg; Height st1 5 ft. 5 in. (165.10 cm); Pain 0/10; 10/14 01:00 BP 187 / 97; Pulse 85; Resp 20; Pulse Ox 100% ; vc1 02:00 BP 149 / 79; Pulse 87; Resp 22; Pulse Ox 96% on R/A; vc1 10/13 23:56 Body Mass Index 22.96 (62.60 kg, 165.10 cm) st1 MDM: 00:06 Patient medically screened. derek 01:05 Differential diagnosis: angioedema, Arrhythmias bronchospasm, Anxiety Reaction derek Bronchitis CHF exacerbation, urticaria, Myocardial Infarction pneumonia, Pneumothorax Psychogenic pulmonary edema, Pulmonary Embolism Unstable Angina. Antibiotic administration: Not indicated. The patient's Wells Deep Vein Thrombosis Score was calculated as follows: Total Score: 0-2 Pts- Low Risk. The patient's pulmonary embolism risk score was calculated as follows: Total Score: 3-6 points. This patient was found to be at moderate risk for a pulmonary embolism by using the Well's assessment criteria. Immunization status: Pneumococcal vaccine: Influenza vaccine: Not up to date. Data reviewed: vital signs, nurses notes, lab test result(s), EKG, radiologic studies, plain films. Data interpreted: cardiac monitor technician: rate is 76 beats/min, rhythm is regular, Pulse oximetry: on room air is 100 %. Test interpretation: by ED physician or midlevel provider: ECG, plain radiologic studies. Counseling: I had a detailed discussion with the patient and/or guardian regarding: the historical points, exam findings, and any diagnostic results supporting the discharge/admit diagnosis, lab results, radiology results. 10/14 00:08 Order name: CBC with Diff derek 10/14 00:08 Order name: Comprehensive Metabolic Panel [facility] 10/14 00:08 Order name: CBC with Automated Diff; Complete Time: 01:02 EDHI 10/14 00:08 Order name: Comprehensive Metabolic Panel; Complete Time: 01:11 EDHI 10/14 00:24 Order name: Chest Single View XRAY [facility] 10/14 00:47 Order name: Troponin High Sensitivity; Complete Time: 01:11 EDHI 10/14 00:47 Order name: NT PRO-BNP; Complete Time: 01:11 EDHI 10/14 00:24 Order name: EKG; Complete Time: 00:25 [facility] 10/14 00:24 Order name: EKG - Nurse/Tech; Complete Time: 00:51 [facility] Administered Medications: 00:27 Drug: Pepcid (famotidine) 20 mg Route: IVP; Site: right antecubital; vc1 02:01 Follow up: Response: No adverse reaction vc1 00:27 Drug: SOLU-Medrol (methylPrednisoLONE) 125 mg Route: IVP; Site: right antecubital; vc1 02:01 Follow up: Response: No adverse reaction vc1 00:28 Drug: NS 0.9% 500 ml Route: IV; Rate: bolus; Site: right antecubital; vc1 02:01 Follow up: Response: No adverse reaction; IV Status: Completed infusion; IV Intake: vc1 500ml 00:51 Not Given (Patient Refused): predniSONE 20 mg PO once vc1 00:51 Not Given (Patient stated allergicc): Benadryl (diphenhydrAMINE) 25 mg IVP once vc1 00:52 Not Given (Patient stated allergicc): Benadryl (diphenhydrAMINE) 25 mg IVP once vc1 Disposition Summary: 10/14/21 01:11 Discharge Ordered Location: Home derek Problem: new derek Symptoms: have improved derek Condition: Stable derek Diagnosis - Allergy status to unspecified drugs, medicaments and biological substances status derek Followup: derek - With: Private Physician - When: 2 - 3 days - Reason: Recheck today's complaints, Continuance of care, Re-evaluation by your physician Discharge Instructions: - Discharge Summary Sheet derek - Drug Allergy, Uonw-mo-Tqif edrek - Drug Allergy derek - Allergies, Adult, Skok-cb-Ammt derek Forms: - Medication Reconciliation Form derek - Thank You Letter derek - Antibiotic Education derek - Prescription Opioid Use derek Prescriptions: - Benadryl 25 mg Oral Capsule - take 1 capsule by ORAL route every 6 hours As needed; 30 tablet; Refills: 0, [facility] Product Selection Permitted - Pepcid 20 mg Oral Tablet - take 1 tablet by ORAL route every 12 hours for 5 days; 10 tablet; Refills: 0, [facility] Product Selection Permitted - Prednisone 20 mg Oral Tablet - take 1 tablet by ORAL route once daily for 5 days; 5 tablet; Refills: 0, [facility] Product Selection Permitted Signatures: Dispatcher [employer] EDMS Pio Talbot MD MD cha Tingle, Shellie RN RN st1 Arabella Currie RN RN vc1 Corrections: (The following items were deleted from the chart) 00:47 00:25 PROBNP+C.LAB.BRZ ordered. EDMS EDMS 00:47 00:25 Troponin High Sensitivity+C.LAB.BRZ ordered. EDMS EDMS
--- NOTE | 2021-10-14 01:12 | ER ---
Nurse's Notes [facility] Name: Jil Dyer Age: 86 yrs Sex: Female : 1935 Arrival Date: 10/13/2021 Time: 23:54 Bed 14 Private MD: Diagnosis: Allergy status to unspecified drugs, medicaments and biological substances status Presentation: 10/13 23:54 Chief complaint: Patient states: the patient took Oscillococcinum OTC (1 Pill) \T\ 2330. st1 She began to feel like her airway is closing, anxious and a rash on her lower extremities. Coronavirus screen: Vaccine status: Patient reports receiving the 2nd dose of the covid vaccine. [employer] Client denies travel out of the [place] in the last 14 days. Ebola Screen: No symptoms or risks identified at this time. Initial Sepsis Screen: Does the patient meet any 2 criteria? No. Patient's initial sepsis screen is negative. Risk Assessment: Do you want to hurt yourself or someone else? Patient reports no desire to harm self or others. 23:56 Acuity: ANJALI 3 st1 23:58 Method Of Arrival: Ambulatory st1 10/14 00:00 Initial Sepsis Screen: Does the patient have a suspected source of infection? No. vc1 Patient's initial sepsis screen is negative. Onset of symptoms was October 14, 2021. Triage Assessment: 10/13 23:59 General: Appears distressed, uncomfortable, slender, Behavior is cooperative, anxious. st1 Pain: Denies pain. Historical: - Allergies: 23:58 Iodine; st1 23:58 PENICILLINS; st1 23:58 Sulfa (Sulfonamide Antibiotics); st1 23:58 Morphine; st1 23:58 Demerol; st1 - PMHx: 23:58 None; st1 - Immunization history:: Adult Immunizations up to date. - Social history:: Patient uses Patient/guardian denies using street drugs, IV drugs, Smoking status: Patient denies any tobacco usage or history of. Screenin/15 01:54 Abuse screen: Denies threats or abuse. Nutritional screening: No deficits noted. vc1 Tuberculosis screening: No symptoms or risk factors identified. Fall Risk None identified. Assessment: 00:00 General: Appears uncomfortable, Behavior is anxious, crying, inappropriate for age. vc1 Pain: Denies pain. Neuro: Level of Consciousness is awake, alert, obeys commands, Oriented to person, place, time, situation, Appropriate for age. Cardiovascular: No deficits noted. Respiratory: Reports shortness of breath Airway is patent Trachea midline Respiratory effort is even, unlabored, Respiratory pattern is regular, symmetrical. 01:00 Reassessment: Patient and/or family updated on plan of care and expected duration. Pain vc1 level reassessed. Patient is alert, oriented x 3, equal unlabored respirations, skin warm/dry/pink. 01:58 Reassessment: Patient appears in no apparent distress at this time. Patient and/or vc1 family updated on plan of care and expected duration. Pain level reassessed. Patient is alert, oriented x 3, equal unlabored respirations, skin warm/dry/pink. Patient states feeling better. Patient states symptoms have improved. Vital Signs: 10/13 23:56 BP 153 / 75; Pulse 76; Resp 22; Temp 97.5; Pulse Ox 100% on R/A; Weight 62.6 kg; Height st1 5 ft. 5 in. (165.10 cm); Pain 0/10; 10/14 01:00 BP 187 / 97; Pulse 85; Resp 20; Pulse Ox 100% ; vc1 02:00 BP 149 / 79; Pulse 87; Resp 22; Pulse Ox 96% on R/A; vc1 10/13 23:56 Body Mass Index 22.96 (62.60 kg, 165.10 cm) st1 ED Course: 10/13 23:54 Patient arrived in ED. st1 23:57 Triage completed. st1 10/14 00:00 Arm band placed on left wrist. st1 00:00 Patient has correct armband on for positive identification. vc1 00:00 campus monitor on. Pulse ox on. NIBP on. vc1 00:06 Pio Talbot MD is Attending Physician. derek 00:28 Comprehensive Metabolic Panel Sent. vc1 00:28 CBC with Diff Sent. vc1 00:28 Inserted saline lock: 22 gauge in right antecubital area, using aseptic technique. vc1 Blood collected. 00:38 Chest Single View XRAY In Process Unspecified. EDMS 01:51 Arabella Currie RN is Primary Nurse. vc1 01:54 No provider procedures requiring assistance completed. IV discontinued, intact, vc1 bleeding controlled, No redness/swelling at site. Pressure dressing applied. Administered Medications: 00:27 Drug: Pepcid (famotidine) 20 mg Route: IVP; Site: right antecubital; vc1 02:01 Follow up: Response: No adverse reaction vc1 00:27 Drug: SOLU-Medrol (methylPrednisoLONE) 125 mg Route: IVP; Site: right antecubital; vc1 02:01 Follow up: Response: No adverse reaction vc1 00:28 Drug: NS 0.9% 500 ml Route: IV; Rate: bolus; Site: right antecubital; vc1 02:01 Follow up: Response: No adverse reaction; IV Status: Completed infusion; IV Intake: vc1 500ml 00:51 Not Given (Patient Refused): predniSONE 20 mg PO once vc1 00:51 Not Given (Patient stated allergicc): Benadryl (diphenhydrAMINE) 25 mg IVP once vc1 00:52 Not Given (Patient stated allergicc): Benadryl (diphenhydrAMINE) 25 mg IVP once vc1 Intake: 02:01 IV: 500ml; Total: 500ml. vc1 Outcome: 01:11 Discharge ordered by MD. reed 01:56 Discharged to home ambulatory. vc1 01:56 Condition: good 01:56 Discharge instructions given to patient, significant other, Instructed on discharge instructions, follow up and referral plans. medication usage, Demonstrated understanding of instructions, follow-up care, medications, Prescriptions given X 3. 02:07 Patient left the ED. vc1 Signatures: Dispatcher [employer] EDAZ Pio Talbot MD MD cha Tingle, Shellie RN RN st1 Arabella Currie RN RN vc1 Corrections: (The following items were deleted from the chart) 10/13 23:58 23:54 Method Of Arrival: Ambulatory st1 st1 10/14 00:51 00:28 predniSONE 20 mg PO vc1 vc1
[2021-10-14 02:19] VITALS: TEMP 97.5
[2021-10-14 02:22] VITALS: BP 149/79; O2SAT 96
--- NOTE | 2021-10-14 08:52 | RAD REPORT ---
EXAM DESCRIPTION: RAD - Chest Single View - 10/14/2021 12:38 am CLINICAL HISTORY: DYSPNEA COMPARISON: None TECHNIQUE: AP portable chest image was obtained 10/14/2021 12:38 am . FINDINGS: No peripheral mass or consolidation. No significant failure or volume overload. Diffusely prominent interstitial pattern is present throughout both lung black. This is most likely the patien t's baseline fibrosis. A mild superimposed interstitial edema or infiltrate would be possible. Heart and vasculature are normal. No measurable pleural effusion and no pneumothorax. No acute bony abnormality seen. No acute aortic findings suspected. IMPRESSION: No significant failure and no focal consolidation. Prominent interstitial pattern is probably baseline fibrosis. Superimposed interstitial edema or infi ltrate would be possible.
--- NOTE | 2021-10-14 10:15 | EKG ---
Test Date: 2021-10-14 Test Time: 00:34:03 Cad Specialist: CASE MEASUREMENT RESULTS: Intervals: Rate: 62 SC: 132 QRSD: 74 QT: 412 QTc: 418 Sagle: P: 73 SC: 132 QRS: 41 T: 39 INTERPRETIVE STATEMENTS: Normal sinus rhythm Low voltage QRS Borderline ECG No previous ECG available for comparison Electronically Signed On 10-14-21 10:14:21 LOMBARDI DEVELOPER by Ariel Segovia
== END 2021-10-14 02:07 | disposition home or self-care (01) ==
LOC: ER 23:52
DX: R06.02 Shortness of breath (principal); T50.905A Adverse effect of unspecified drugs, medicaments and biological substances, initial encounter; Y92.009 Unspecified place in unspecified non-institutional (private) residence as the place of occurrence of the external cause; Z88.0 Allergy status to penicillin; Z88.2 Allergy status to sulfonamides
CPT/HCPCS: 96361; 93005; 85025; 36415; 84484; 80053; 83880; 71045; 96375; 96374; 99284; J1200; J7040; J2930; J7512